=== PATIENT | male | born 1970 | race Two or more races ===

== ENCOUNTER 2025-02-04 09:45 | Emergency (ER) | payer OTHER ==
[~2025-02-04] VITALS: Ht 170.2 cm; Wt 102.1 kg
[2025-02-04] MEDS ORDERED: CEFTRIAXONE SODIUM 2,000 MG VIAL IV ONE (11:00)
[2025-02-04] MEDS ORDERED: ONDANSETRON HCL 2 MG/ML VIAL IV ONE (11:00)
[2025-02-04] MEDS ORDERED: 0.9 % SODIUM CHLORIDE 1,000 ML IV SCH (11:00)
[2025-02-04] MEDS ORDERED: MORPHINE SULFATE 2 MG/ML SYRINGE IV ONE (11:00)
[2025-02-04] MEDS ORDERED: CEFTRIAXONE SODIUM 2,000 MG VIAL ONE (11:03)
[2025-02-04] MEDS ORDERED: ONDANSETRON HCL 2 MG/ML VIAL ONE (11:03)
[2025-02-04 11:39] LABS: BASO % 0.3 % (0.1-1.2); EOS # 0.02 (0.04-0.54); EOS % 0.2 % (0.7-7.0); LYMPH # 0.88 (1.18-3.74); LYMPH % 7.9 % (19.3-53.1); MEAN PLATELET VOLUME 9.60 fl (9.4-12.4); MONO # 0.65 (0.24-0.82); MONO % 5.9 % (4.7-12.5); NEUT # 9.48 (1.56-6.13); NEUT % 85.3 % (34.0-71.1); RED CELL DISTRIBUTION WIDTH 13.0 % (11.6-14.4)
[2025-02-04 12:03] LABS: ALT/SGPT 31.0 U/L (12-78); AST/SGOT 13.0 U/L (15-37); BILIRUBIN TOTAL 0.55 mg/dL (0.3-1.2); BUN CREA RATIO 15.0 (7.0-25.0); CREATININE SERUM 1.42 mg/dL (0.70-1.30); GFR 51.76; GLOBULINA 3.6 G/DL (2.4-3.5); GLUCOSE FASTING 131.0 mg/dL (65-100); OSMOLALITY SERUM 285.0 MOSM/KG (275-295)
[2025-02-04 13:10] LABS: URINE APPEARANCE Clear; URINE BILIRRUBIN Negative (NEGATIVE); URINE BLOOD Moderate; URINE COLOR Yellow; URINE GLUCOSE Negative (NEGATIVE); URINE KETONE Negative (NEGATIVE); URINE LEUKOCYTE Negative; URINE NITRATE Negative; URINE PROTEIN Trace (NEGATIVE); URINE UROBILINOGEN 0.2 E.U./dl
[2025-02-04 13:14] LABS: URINE BACTERIA 10.7 uL (0.0-1933); URINE RBC 68.0 uL (0.0-20.8); URINE WBC 2.1 uL (0.0-23.2)
[2025-02-04] MEDS ORDERED: MORPHINE SULFATE 4 MG/ML CARTRIDGE IV SCH (13:21)
[2025-02-04 13:38] LABS: URINE CAST 0.29 uL (0.0-1.40); URINE EPITHELIAL CELLS 1.3 uL (0.0-38.8)
[2025-02-04] MEDS ORDERED: TAMSULOSIN HCL 0.4 MG CAP PO ONE ×2 (15:15→15:36)
[2025-02-04] MEDS ORDERED: KETOROLAC TROMETHAMINE 30 MG VIAL IV ONE (15:15)
[2025-02-04] MEDS ORDERED: KETOROLAC TROMETHAMINE 30 MG VIAL ONE (15:36)
[2025-02-04] MEDS ORDERED: PEPCID AC20 MG PO (18:28)
[2025-02-04] MEDS ORDERED: BACTRIM DS TAB1 EACH PO (18:28)
[2025-02-04] MEDS ORDERED: ZOFRAN8 MG PO (18:28)
[2025-02-04] MEDS ORDERED: TAMS0.4C PO (18:28)
[2025-02-04] MEDS ORDERED: NORFLEX100MG PO (18:28)
== END 2025-02-04 20:14 | disposition home or self-care (01) ==
LOC: ER 09:45
PROVIDERS: General Practice
DX: N20.2 Calculus of kidney with calculus of ureter (principal); N28.1 Cyst of kidney, acquired